=== PATIENT | female | born 1995 | race Caucasian/White ===

== ENCOUNTER 2025-06-30 07:30 | Emergency (ER) | payer SELFPAY ==
[2025-06-30 07:33] VITALS: BP 115/61; PULSE 58; RESP 17; TEMP 36.4; O2SAT 100
--- NOTE | 2025-06-30 07:41 | ECG_ITS ---
Test Date: 2025-06-30 07:43:56 Measurements Intervals [place] Rate: 55 P: 83 NV: 145 QRS: 86 QRSD: 95 T: 67 QT: 462 QTc: 444 Interpretive Statements SINUS BRADYCARDIA INCOMPLETE RIGHT BUNDLE BRANCH BLOCK [90+ ms QRS DURATION, TERMINAL R IN V1/V2, 40+ ms S IN I/aVL/V4/V5/V6] MODERATE T-WAVE ABNORMALITY, CONSIDER ANTERIOR ISCHEMIA [-0.1+ mV T-WAVE IN V3/V4] ABNORMAL ECG No previous ECG available for comparison Electronically Signed On 06-30-2025 13:03:19 CDT by Kevin Osullivan M.D.
[2025-06-30] MEDS: SODIUM CHLORIDE 0.9% IV 1,000 ML 999 ML IV CONT (08:05)
[2025-06-30] MEDS: ONDANSETRON INJ 4 MG/2 ML VIAL IV PUSH (08:05)
[2025-06-30 08:11] LABS: Hematocrit 40.1 % (37.0-47.0); Hemoglobin 13.0 g/dL (12.0-15.0); Immature Granulocyte Percent A 5.4 % (0-0.5); Lymphocytes Absolute Auto 1.80 K/mm3 (0.9-3.2); Mean Corpuscular HGB Conc 32.4 g/dl (32-36); Mean Corpuscular Hemoglobin 28.9 pg (26-34); Mean Corpuscular Volume 89.1 fl (80-100); Nucleated Red Blood Cells Absolute Auto 0.000 K/mm3 (0.0-0.012); Nucleated Red Blood Cells Perc 0.0 % (0.0-0.2); Platelet Count Result 303 k/mm3 (150-375); Red Blood Count 4.50 M/mm3 (4.2-5.4); White Blood Count 10.0 K/mm3 (4.5-10.0)
--- NOTE | 2025-06-30 08:13 | PC.NURSE ---
pt unable to provide u/a sample, pt uncooperative w/ vs and monitor leads - states she is sorry i cant sit still, im in too much pain. Pt yelling, thrashing.
--- NOTE | 2025-06-30 08:15 | ED_ITS ---
HPI - Abdominal Pain General Chief Complaint: Abdominal Pain Stated Complaint: Abd pain Time Seen by Provider: 06/30/25 07:34 History of Present Illness HPI narrative: Patient is a 29-year-old female who presents ER with sudden onset abdominal pain. Began this morning. Associated nausea vomiting. No fevers or chills or sweats. No diarrhea. No urinary symptoms. Reports she had symptoms similar to this once before several years ago but was given no formal diagnosis. She did not smoke any marijuana. She did not have a fatty meal prior to going to bed. Related Data Allergies Allergy/AdvReac Type Severity Reaction Status Date / Time No Known Allergies Allergy Verified 06/30/25 08:04 Review of Systems 2 Review of Systems: All systems reviewed & are unremarkable except as noted in HPI and below Constitutional: Constitutional: Reports no additional constitutional complaints ENT: Reports system reviewed and no additional complaints, except as documented Cardiovascular: Cardiovascular: Reports no additional cardiovascular complaints Respiratory: Respiratory: Reports no additional respiratory complaints Gastrointestinal: Gastrointestinal: Reports no additional gastrointestinal complaints [facility] Past Medical History Medical History (Updated 06/30/25 @ 11:10 by Suhail Rogers MD) Bipolar disorder Surgical History Surgical History (Updated 06/30/25 @ 08:16 by Suhail Rogers MD) No pertinent past surgical history Exam 2 Narrative: GENERAL: Lying on her left side cold up with the covers over her head. Refusing to move anything to speak with the physician. HEAD: Normocephalic, atraumatic. ENT: Mucous membranes moist. NECK: Supple. CHEST: Clear to auscultation. No respiratory distress. HEART: Regular rate and rhythm. Normal peripheral pulses. ABDOMEN: Reports diffuse pain the abdomen is soft and demonstrates no guarding, nondistended. EXTREMITIES: Normal range of motion. No edema. SKIN: Warm, dry, no rash. NEURO: Alert and oriented x3. PSYCH: Normal mood and affect. Course Course Emergency Course: Nausea abated after Zofran and Compazine. Reviewed labs with patient. Appropriate for discharge home. Abdomen soft nontender. Vital Signs Vital signs: Vital Signs Temperature 97.6 F 06/30/25 07:33 Pulse Rate 58 L 06/30/25 07:33 Respiratory Rate 17 06/30/25 07:33 Blood Pressure 115/61 06/30/25 07:33 Pulse Oximetry 100 06/30/25 07:33 Oxygen Delivery Room Air 06/30/25 07:33 Temperature 97.6 F 06/30/25 07:33 Pulse Rate 63 06/30/25 09:36 Respiratory Rate 20 06/30/25 09:36 Blood Pressure 112/64 06/30/25 09:36 Pulse Oximetry 100 06/30/25 09:36 Oxygen Delivery Room Air 06/30/25 07:33 MDM - Abdominal Pain Lab Data 06/30/25 07:59 06/30/25 07:59 Labs: Lab Results 06/30/25 06/30/25 06/30/25 Range/Units 07:39 07:59 09:20 WBC 10.0 (4.5-10.0) K/mm3 RBC 4.50 (4.2-5.4) M/mm3 Hgb 13.0 (12.0-15.0) g/dL Hct 40.1 (37.0-47.0) % MCV 89.1 (80-100) fl MCH 28.9 (26-34) pg MCHC 32.4 (32-36) g/dl RDW 11.9 (11.5-14.5) % Plt Count 303 (150-375) k/mm3 MPV 10.2 (7.4-10.4) fl Immature Gran % (Auto) 5.4 H (0-0.5) % Neut % (Auto) 69.1 (45.5-73.1) % Lymph % (Auto) 18.0 L (18.3-44.2) % [place] % (Auto) 7.0 (2.6-8.5) % Eos % (Auto) 0.3 (0-4.4) % Baso % (Auto) 0.2 (0.2-1.2) % Lymph # (Auto) 1.80 (0.9-3.2) K/mm3 [place] # (Auto) 0.7 H (0.1-0.6) K/mm3 Eos # (Auto) 0.0 (0-0.3) K/mm3 Baso # (Auto) 0.0 (0.0-0.1) K/mm3 Abs Immat Gran (auto) 0.54 H (0.00-0.031) K/mm3 Absolute Neuts (auto) 6.9 H (1.3-6.7) K/mm3 Absolute Nucleated RBC 0.000 (0.0-0.012) K/mm3 Nucleated RBC % 0.0 (0.0-0.2) % Sodium 138 (137-145) mmol/L Potassium 3.2 L (3.4-5.0) mmol/L Chloride 104 (98-107) mmol/L Carbon Dioxide 21 L (22-30) mmol/L Anion Gap 13 H (4-12) mmol/L BUN 11 (7-17) mg/dL Creatinine 0.68 L (0.7-1.0) mg/dL Estim Creat Clear Calc 84 ml/min Estimated GFR > 60 (59 - ) Glucose 116 H (65-110) mg/dL POC Capillary Glucose 108 H (65-105) mg/dl Calcium 9.4 (8.4-10.2) mg/dL Total Bilirubin 0.8 (0.2-1.3) mg/dL AST 37 H (14-36) U/L ALT 18 (6-35) U/L Alkaline Phosphatase 85 (38-126) U/L Troponin I < 0.012 (0.000-0.034) ng/mL Total Protein 8.3 H (6.3-8.2) g/dL Albumin 4.8 (3.5-5.1) g/dL Lipase 67 (23-300) U/L Urine Color Yellow (Yellow) Urine Appearance Turbid H (Clear) Urine pH >=9.0 H (5.0-9.0) Ur Specific [place] 1.019 (1.001-1.035) Urine Protein 1+ H (Negative) mg/dL Urine Glucose (UA) Negative (Negative) mg/dL Urine Ketones 2+ H (Negative) mg/dL Ur Blood (Man) Negative (Negative) Urine Nitrate Negative (Negative) Urine Bilirubin Negative (Negative) Urine Urobilinogen 0.2 (<2.0) mg/dL Leukocyte Esterase Rfl Negative (Negative) MORRIS/UL Urine RBC 0-2 (0-2) /hpf Urine WBC 0-5 (0-3) /hpf Ur Squamous Epith Cells None seen (Few) /hpf Urine Bacteria Rare /hpf Urine Casts 0-2 POC Urine HCG, Qual (Negative) 06/30/25 Range/Units 09:21 WBC (4.5-10.0) K/mm3 RBC (4.2-5.4) M/mm3 Hgb (12.0-15.0) g/dL Hct (37.0-47.0) % MCV (80-100) fl MCH (26-34) pg MCHC (32-36) g/dl RDW (11.5-14.5) % Plt Count (150-375) k/mm3 MPV (7.4-10.4) fl Immature Gran % (Auto) (0-0.5) % Neut % (Auto) (45.5-73.1) % Lymph % (Auto) (18.3-44.2) % [place] % (Auto) (2.6-8.5) % Eos % (Auto) (0-4.4) % Baso % (Auto) (0.2-1.2) % Lymph # (Auto) (0.9-3.2) K/mm3 [place] # (Auto) (0.1-0.6) K/mm3 Eos # (Auto) (0-0.3) K/mm3 Baso # (Auto) (0.0-0.1) K/mm3 Abs Immat Gran (auto) (0.00-0.031) K/mm3 Absolute Neuts (auto) (1.3-6.7) K/mm3 Absolute Nucleated RBC (0.0-0.012) K/mm3 Nucleated RBC % (0.0-0.2) % Sodium (137-145) mmol/L Potassium (3.4-5.0) mmol/L Chloride (98-107) mmol/L Carbon Dioxide (22-30) mmol/L Anion Gap (4-12) mmol/L BUN (7-17) mg/dL Creatinine (0.7-1.0) mg/dL Estim Creat Clear Calc ml/min Estimated GFR (59 - ) Glucose (65-110) mg/dL POC Capillary Glucose (65-105) mg/dl Calcium (8.4-10.2) mg/dL Total Bilirubin (0.2-1.3) mg/dL AST (14-36) U/L ALT (6-35) U/L Alkaline Phosphatase (38-126) U/L Troponin I (0.000-0.034) ng/mL Total Protein (6.3-8.2) g/dL Albumin (3.5-5.1) g/dL Lipase (23-300) U/L Urine Color (Yellow) Urine Appearance (Clear) Urine pH (5.0-9.0) Ur Specific [place] (1.001-1.035) Urine Protein (Negative) mg/dL Urine Glucose (UA) (Negative) mg/dL Urine Ketones (Negative) mg/dL Ur Blood (Man) (Negative) Urine Nitrate (Negative) Urine Bilirubin (Negative) Urine Urobilinogen (<2.0) mg/dL Leukocyte Esterase Rfl (Negative) MORRIS/UL Urine RBC (0-2) /hpf Urine WBC (0-3) /hpf Ur Squamous Epith Cells (Few) /hpf Urine Bacteria /hpf Urine Casts POC Urine HCG, Qual Negative (Negative) Discharge Plan Discharge Clinical Impression: Vomiting Patient Disposition: Home Condition: Stable Instructions: Acute Nausea and Vomiting (ED) Additional Instructions: Return to the emergency department if you develop severe abdominal pain, severe nausea and vomiting to the point where you are unable to keep down fluids, if you develop chest pain or difficulty breathing, blood in your stool, dizziness or fainting, or if you develop any other new or concerning symptoms as these could be signs of more serious medical illness. Try to stay well hydrated. Patient Language: Slovak Prescriptions: New ondansetron 4 mg tablet,disintegrating 4 mg PO Q6H PRN (Reason: nausea and vomiting) Qty: 10 0RF Follow-up/Referrals: UNKNOWN,DOCTOR [Primary Care Provider] - 1 Week
[2025-06-30 08:19] LABS: Alanine Aminotransferase 18 U/L (6-35); Albumin Level 4.8 g/dL (3.5-5.1); Alkaline Phosphatase 85 U/L (38-126); Anion Gap 13 mmol/L (4-12); Aspartate Amino Transferase 37 U/L (14-36); Bilirubin,Total 0.8 mg/dL (0.2-1.3); Blood Urea Nitrogen 11 mg/dL (7-17); Calcium 9.4 mg/dL (8.4-10.2); Carbon Dioxide 21 mmol/L (22-30); Chloride 104 mmol/L (98-107); Estimated CRCL calculation 84 ml/min; Estimated Glomerular Filt Rate > 60; Glucose 116 mg/dL (65-110); Lipase 67 U/L (23-300); Potassium 3.2 mmol/L (3.4-5.0); Sodium 138 mmol/L (137-145); Total Protein 8.3 g/dL (6.3-8.2)
[2025-06-30 08:30] LABS: Troponin I < 0.012 ng/mL (0.000-0.034)
[2025-06-30 08:47] VITALS: PULSE 69; RESP 19; O2SAT 100
[2025-06-30 09:23] LABS: BEDSIDEPREGUCG Negative (Negative)
[2025-06-30 09:30] LABS: Add Urine Microscopic? YES; Appearance Urine Turbid (Clear); Glucose Urine UA Negative (Negative); Leukocyte Esterase Ur Negative LEU/UL (Negative); Nitrate Urine Negative (Negative); Non Pathogenic Casts 0-2; Specific Grav Ur 1.019 (1.001-1.035)
[2025-06-30 09:36] VITALS: BP 112/64; PULSE 63; RESP 20; O2SAT 100
[2025-06-30] MEDS: PROCHLORPERAZINE EDISYLATE 10 MG/2 ML VIAL IV PUSH (09:37)
--- OUTSIDE RECORDS SUMMARY | 2025-06-30 10:03 | XMS_ITS | Clinical Summary ---
Author Organization [facility] Address [address] [place] [address] Phone Care Team Providers Care Skein Mercerizing Machine Operator Name Role Phone Sonal Castaneda MD Primary Care Provider [phone] Allergies No known active allergies Medications medroxyPROGEST ERone (DEPO-PROVERA) 150 MG/ML Suspension by Intramuscular route once. Hazardous: Medication requires special safe handling and disposal. Active Social History Tobacco Use Types Packs/Day Years Used Date Smoking Tobacco: Never Alcohol Use Standard Drinks/Week Comments No 0 (1 standard drink = 0.6 oz pur e alcohol) Comments No Sex and Gender Information Value Date Recorded Sex Assigned at Not on file Legal Sex Female 6:39 PM CDT Gender Identity Not on file Sexual Orientation Not on file Last Filed Vital Signs Vital Sign Reading Time Taken Comments Blood Pressure 108/61 08/06/2015 10:31 AM CDT Pulse 101 08/06/2015 10:31 AM CDT Temperature 37.3 C (99.1 F) 08/06/2015 10:31 AM CDT Respiratory Rate 18 08/06/2015 10:31 AM CDT Oxygen Saturation 99% 08/06/2015 10:31 AM CDT Inhaled Oxygen Concentration - - Weight 56.2 kg (124 lb) 08/06/2015 10:31 AM CDT Height - - Body Mass Index - - Plan of Treatment Health Maintenance Due Date Last Done Comments Hepatitis C Virus (HCV) Screening 1997 SARS-COV-2 Immunization ( season) 2024 09/30/2021, 02/02/2021, 01/04/2021 Influenza Immunization (#1) 06/14/202509/13, 07/23/2013, 07/25/2012 Respiratory Syncytial Virus (RSV) Immunization (Adult) (1 - 1-dose 75+ series) 2072 Hepatitis B Immunization Completed 998, 1997, 1997 Human Papillomavirus (HPV) Immunization Completed 09/27/2014, 07/23/2013, 07/25/2012 Meningococcal Immunization (ACWY) Completed 09/27/2014, 07/25/2012 DTaP/Tdap/Td Immunization Discontinued 2019, 07/27/2009, 07/16/2003, Additional history exists TdaP Immunization Completed 06/15/2020, 07/27/2009 Pneumococcal Immunization Combined Aged Out No longer eligible based on patient's age to complete this topic Rotavirus Immunization Aged Out No lo nger eligible based on patient's age to complete this topic Insurance MEDICAID [place] Care Teams Skein Mercerizing Machine Operator Relationship Specialty Start Date End Date Sonal Castaneda MD [address] [place] [address] PCP - General Family Medicine 08/06/15
== END 2025-06-30 11:27 | disposition home or self-care (01) ==
PROVIDERS: Emergency Provider Emergency Medicine
DX: R11.10 Vomiting, unspecified (principal)
CPT/HCPCS: 36415; 80053; 81001; 81025; 82948; 83690; 84484; 85025; 93005; 96361; 96374; 96375; 99284; J0780; J2405; J7030